=== PATIENT | female | born 1990 | race African-American/Black ===

== ENCOUNTER 2016-04-19 19:53 | Observation (INO) | payer MEDICAID, OTHER ==
[~2016-04-19] VITALS: Ht 160 cm; Wt 59.0 kg
[2016-04-19] MEDS ORDERED: LACTATED RINGER'S 1,000 ML IV SCH (20:42)
[2016-04-19] MEDS ORDERED: LACTATED RINGER'S 1,000 ML IV ONE (20:42)
[2016-04-19] MEDS ORDERED: TERBUTALINE SULFATE 1 MG/ML 1ML VIAL SC ONE ×2 (20:45→20:46)
[2016-04-19] MEDS ORDERED: ACETAMINOPHEN 325 MG TAB PO ONE ×2 (20:46→21:00)
[2016-04-19 21:32] LABS: Basophils # (auto) 0 uL; Basophils % (auto) 0.3 % (0.0-2.0); Eosinophils # (auto) 0 uL; Eosinophils % (auto) 0.3 % (0.0-7.0); Hemoglobin 12.1 g/dL (12.2-16.2); Lymphocytes # (auto) 1.2 uL; Lymphocytes % (auto) 12.1 % (10.0-50.0); Mean Corpuscular Hemoglobin 29.3 pg (28.0-32.0); Mean Corpuscular Hgb Conc. 32.7 g/dL (32.0-36.0); Mean Corpuscular Volume 89.9 fL (80.0-100.0); Mean Platelet Volume 9.4 fL (7.4-10.4); Monocytes # (auto) 0.5 uL; Monocytes % (auto) 5.3 % (0.0-12.0); Neutrophils # (auto) 8.3 uL; Platelet Count (auto) 143 10^3/uL (140-450); Red Cell Distribution Width 14.1 % (11.6-16.0); White Blood Cell 10.1 10^3/uL (4.4-10.8)
[2016-04-19 21:45] LABS: INR 0.96 (0.9-1.15); Partial Thromboplastin Time 28.7 sec (22.64-33.71); Prothrombin Time 9.9 sec (9.37-12.3)
[2016-04-19] MEDS ORDERED: TERBUTALINE SULFATE 1 MG/ML 1ML VIAL SC SCH (21:45)
[2016-04-19 21:50] LABS: Urine Bilirubin Negative (Negative); Urine Blood Negative /uL (Negative); Urine Color Yellow (Yellow); Urine Glucose TRACE mg/dL (Normal); Urine Mucus FEW (None Seen); Urine Nitrite Negative (Negative); Urine RBC 1 /hpf (0 - 4); Urine Squamous Epithelial Cell FEW /hpf (<5)
[2016-04-19 21:52] LABS: Urine Ketone 1+ (Negative)
[2016-04-19 21:53] LABS: Albumin 2.9 g/dL (3.4-5.0); Bilirubin, Total 0.4 mg/dL (0.2-1.0); Calcium 8.4 mg/dL (8.5-10.1); Total Protein 6.9 g/dL (6.4-8.2)
[2016-04-19] MEDS ORDERED: SODIUM CITR/CITRIC ACID ORAL SOLN 30 ML ONE (22:31)
[2016-04-19] MEDS ORDERED: POTASSIUM CHL 20 Meq TABLET PO ONE ×2 (22:31→22:45)
[2016-04-20] MEDS ORDERED: SODIUM CITR/CITRIC ACID ORAL SOLN 30 ML PO SCH (09:00)
== END 2016-04-19 23:15 | disposition home or self-care (01) | DRG 566 ==
LOC: LDRP 19:53
PROVIDERS: ADMIT Obstetrics & Gynecology; ATTEND Obstetrics & Gynecology
DX: O26.893 Other specified pregnancy related conditions, third trimester (principal); M54.9 Dorsalgia, unspecified; M79.606 Pain in leg, unspecified; Z3A.32 32 weeks gestation of pregnancy
CPT/HCPCS: 36415; 59025; 76805; 80053; 81001; 81002; 85025; 85610; 85730; 86592; 86703; 86762; 86850; 86900; 86901; 87340; 96372; G0378; G0434; J3105; 86790; 96365; 96366